=== PATIENT | male | born 1955 | race Two or more races ===

== ENCOUNTER 2023-03-09 23:51 | Emergency (ER) | payer OTHER ==
[~2023-03-09] VITALS: Ht 172.7 cm; Wt 78.6 kg
[2023-03-10] MEDS ORDERED: OXYCODONE W/ ACETAMINOPHEN 5/325MG TABLET PO ONE (01:00)
[2023-03-10] MEDS ORDERED: ONDANSETRON ODT 4 MG TAB PO ONE (01:00)
[2023-03-10 05:36] VITALS: BP 155/80
== END 2023-03-10 05:56 | disposition home or self-care (01) ==
LOC: ER 23:51 → EDBD 23:51 → ER 03-10 05:56
DX: S16.1XXA Strain of muscle, fascia and tendon at neck level, initial encounter (principal); M25.511 Pain in right shoulder; I10 Essential (primary) hypertension; Z79.899 Other long term (current) drug therapy; V43.52XA Car driver injured in collision with other type car in traffic accident, initial encounter; Y93.89 Activity, other specified; Y92.89 Other specified places as the place of occurrence of the external cause; Y99.8 Other external cause status
CPT/HCPCS: 70450; 71250; 72125; 73130; 74176; 82962; 93005